=== PATIENT | male | born 1970 | race Caucasian/White ===

== ENCOUNTER 2019-04-01 14:29 | Emergency (ER) | payer OTHER ==
[~2019-04-01] VITALS: Ht 172.7 cm; Wt 104.3 kg
[~2019-04-01 14:29] MED LIST: ALBU90OI INH; DIAZ2 PO; HYDACE5 PO; HYDACE7.5 PO; Inderal80 MG PO; LORA1 PO; PRED20 PO; VALP250 PO
[2019-04-01 14:57] LABS: BASOPHILS ABSOLUTE AUTO 0.04 K/mm3 (0.00-0.23); BASOPHILS PERCENT AUTO 1 % (0-2); EOSINOPHILS PERCENT AUTO 3 % (0-6); Hematocrit 42.8 % (37.0-53.0); Hemoglobin 14.3 g/dL (13.5-17.5); IMMATURE GRAN ABSOLUTE AUTO 0.03 K/mm3 (0.00-0.10); IMMATURE GRAN PERCENT AUTO 0 % (0-1); LYMPHOCYTES ABSOLUTE AUTO 2.59 K/mm3 (0.84-5.20); LYMPHOCYTES PERCENT AUTO 37 % (21-46); MONOCYTES ABSOLUTE AUTO 0.71 K/mm3 (0.16-1.47); MONOCYTES PERCENT AUTO 10 % (4-13); Mean Corpuscular HGB 30.8 pg (26.0-34.0); Mean Corpuscular HGB Conc 33.4 g/dL (31.5-36.5); Mean Corpuscular Volume 92 fL (80-100); Mean Platelet Volume 11.3 fL (9.1-12.4); NEUTROPHILS ABSOLUTE AUTO 3.48 K/mm3 (1.96-9.15); NEUTROPHILS PERCENT AUTO 49 % (41-73); Platelet Count 169 K/mm3 (150-400); RDW Coefficient Variation 11.9 % (11.7-14.2); RDW Standard Deviation 40.1 fL (35.1-46.3); Red Blood Cell Count 4.65 M/mm3 (4.30-5.90); White Blood Cell Count 7.05 K/mm3 (4.00-11.30)
[2019-04-01 15:15] LABS: Alanine Aminotransfer (ALT/SGP 28 U/L (12-78); Albumin, Blood 3.5 g/dL (3.4-5.0); Alk Phos 55 U/L (50-136); Anion Gap 6 mmol/L (6-16); Aspartate Aminotrans (AST/SGOT 24 U/L (12-37); Bilirubin, Total 0.3 mg/dL (0.1-1.0); Blood Urea Nitrogen 20 mg/dL (8-24); Bun/Creatinine Ratio 20.8 (12.0-20.0); CO2, Blood 28 mmol/L (21-32); Calcium, Blood 8.4 mg/dL (8.5-10.1); Chloride, Blood 105 mmol/L (98-108); Creatinine, Blood 0.96 mg/dL (0.60-1.20); Globulin, Blood 3.5 g/dL (2.2-4.0); Glomerular Filtration Rate >60 (60-); Glucose, Blood 86 mg/dL (70-99); Potassium, Blood 4.3 mmol/L (3.5-5.5); Sodium, Blood 139 mmol/L (136-145)
[2019-04-01] MEDS ORDERED: Diclofenac Sodi50 MG PO (15:36)
[2019-04-01] MEDS ORDERED: DIVA250ER PO (15:37)
[2019-04-01] MEDS ORDERED: Imitrex100 MG PO (15:38)
[2019-04-01] MEDS ORDERED: TRAZ100 PO (15:38)
[2019-04-01] MEDS ORDERED: KETO10 PO (16:45)
[2019-04-01] MEDS ORDERED: ONDA4ODT MM (16:45)
== END 2019-04-01 16:58 | disposition home or self-care (01) ==
LOC: ER 14:29
PROVIDERS: Emergency Medicine
DX: G43.909 Migraine, unspecified, not intractable, without status migrainosus (principal); F43.10 Post-traumatic stress disorder, unspecified; Z79.899 Other long term (current) drug therapy
CPT/HCPCS: 70450; 80053; 85025; 93005; 93010; 96361; 96374; 96375; 99284-25; J0780; J1100; J1200; J1885; J7030

== ENCOUNTER 2023-06-17 11:54 | Day surgery (SDC) | payer OTHER ==
[~2023-06-17] VITALS: Ht 172.7 cm; Wt 112.6 kg
[2023-06-17] VITALS (16 sets, daily range): BP systolic 114–147; BP diastolic 75–105
[~2023-06-17 11:54] MED LIST changes: +ALPHA BRAIN PO; +ATEN100 PO; +BENADRYL25 MG PO; +BUPRENORPHINE SL; +DIVA250ER PO; +Diclofenac Sodi50 MG PO; +HYDCHL25 PO; +Imitrex100 MG PO; +KETO10 PO; +Norco 10-325 T1 EACH PO; +ONDA4ODT MM; +PROP10 PO; +Prinivil10 MG PO; +Robaxin750 MG PO; +TRAZ100 PO; +VITAMIN D310 MC4 PO
[2023-06-17] MEDS ORDERED: AMLO10 PO (12:32)
[2023-06-17] MEDS ORDERED: VENL75ER (12:33)
--- NOTE | 2023-06-17 13:12 | NUR ---
History, Chart, Medications and Allergies reviewed before start of procedure. Lungs clear T/O to Auscultation. Patient confirms NPO status and agrees with scheduled surgery. Pre-Op teaching done. Pt verbalizes understanding. Patient reports completing Chlorhexadine shower X2 prior to admission to hospital.
--- NOTE | 2023-06-17 15:40 | NUR ---
06/17/23 1540 Myla Daniels 1GM OF VANCO POWDER INSTILLED INTO R KNEE JOINT CAPSULE AFTER IMPLANTS WERE IN.
[2023-06-18 03:11] VITALS: BP 118/81
--- NOTE | 2023-06-18 04:50 | NUR ---
SHIFT SUMMARY PT POD 0 RIGHT TOTAL KNEE. PT HAS BEEN UP AND AMBULATING, VOIDING AND TOLERATING PO INTAKE. DENIES N/T IN LOWER EXT, ABLE TO WIGGLE TOES. PT HAS HAD QUITE A BIT OF PAIN, PAIN HAS BEEN MANAGED WITH MEDS PER EMAR. DRESSING C/D/I. VITALS STABLE. PLAN OF CARE REMAINS UNCHANGED.
[2023-06-18 05:03] LABS: BASOPHILS ABSOLUTE AUTO 0.01 K/mm3 (0.00-0.23); BASOPHILS PERCENT AUTO 0 % (0-2); EOSINOPHILS PERCENT AUTO 0 % (0-6); Hematocrit 36.1 % (37.0-53.0); Hemoglobin 12.6 g/dL (13.5-17.5); IMMATURE GRAN ABSOLUTE AUTO 0.05 K/mm3 (0.00-0.10); IMMATURE GRAN PERCENT AUTO 0 % (0-1); LYMPHOCYTES ABSOLUTE AUTO 1.53 K/mm3 (0.84-5.20); LYMPHOCYTES PERCENT AUTO 12 % (21-46); MONOCYTES ABSOLUTE AUTO 0.59 K/mm3 (0.16-1.47); MONOCYTES PERCENT AUTO 5 % (4-13); Mean Corpuscular HGB 30.1 pg (26.0-34.0); Mean Corpuscular HGB Conc 34.9 g/dL (31.5-36.5); Mean Corpuscular Volume 86 fL (80-100); Mean Platelet Volume 10.9 fL (9.1-12.4); NEUTROPHILS ABSOLUTE AUTO 10.71 K/mm3 (1.96-9.15); NEUTROPHILS PERCENT AUTO 83 % (41-73); Platelet Count 215 K/mm3 (150-400); RDW Coefficient Variation 11.9 % (11.7-14.2); RDW Standard Deviation 37.5 fL (35.1-46.3); Red Blood Cell Count 4.19 M/mm3 (4.30-5.90); White Blood Cell Count 12.89 K/mm3 (4.00-11.30)
[2023-06-18 05:30] LABS: Bun/Creatinine Ratio 22.1 (12.0-20.0); Calcium, Blood 8.2 mg/dL (8.5-10.1); Creatinine, Blood 0.9 mg/dL (0.60-1.20); Potassium, Blood 3.9 mmol/L (3.5-5.5)
[2023-06-18 07:24] VITALS: BP 131/88
[2023-06-18] MEDS ORDERED: ASPI81CH PO (08:24)
[2023-06-18] MEDS ORDERED: ACET500 PO (08:24)
[2023-06-18] MEDS ORDERED: OXYC5 PO (08:25)
--- NOTE | 2023-06-18 09:07 | NUR ---
DISCHARGE NOTE: PATIENT WAS EDUCATED ON DISCHARGE INSTRUCTIONS. PATIENT VERBALIZED UNDERSTANDING OF INSTRUCTIONS AND HAD NO FURTHER QUESTIONS AT THIS TIME. IV WAS TAKEN OUT AND WNL. PAIN IS MANAGED WITH PO PAIN MEDS. HIS RIGHT KNEE HAS AN AQUACEL THAT IS C/D/I. DENIES NUMBNESS OR TINGLING IN ALL EXTREMITIES. HE IS TOLERATING PO INTAKE AND IS VOIDING. PATIENT IS A SBA WITH FWW AND GAIT BELT. HE IS DRESSED AND HAS PERSONAL ITEMS IN THE ROOM GATHERED. HARD PERSCRITPIONS WERE SENT TO [facility] BY DR. PAIGE. PATIENT IS WAITING FOR HIS RIDE TO ARRIVE TO TAKE HIM HOME.
--- NOTE | 2023-06-18 09:11 | NUR ---
PATIENT IS LAYING IN THE RECLINER CHAIR WITH CALL LIGHT IN REACH WAITING FOR HIS RIDE TO ARRIVE TO TAKE HIM HOME.
--- NOTE | 2023-06-18 10:33 | NUR ---
PATIENT WAS JUST WHEELCHAIRED OUT TO PATIENTS FAMILY MEMBERS CAR TO BE TAKEN HOME. HE HAS ALL OF HIS PERSONAL ITEMS IN THE ROOM GATHERED AND WITH HIM.
== END 2023-06-18 10:34 | disposition home or self-care (01) ==
LOC: SURS 11:54 → ORSCMMR 11:54 → ORD 15:45 → ORSCMMR 15:45 → SURS 17:25 → ORSCMMR 17:26 → SURS 06-18 10:34
PROVIDERS: Orthopaedic Surgery
PROC: 0SRC0JA Replacement of Right Knee Joint with Synthetic Substitute, Uncemented, Open Approach (ICD-10-PCS; principal; 2023-06-17 15:00)
DX: M17.11 Unilateral primary osteoarthritis, right knee (principal); G47.33 Obstructive sleep apnea (adult) (pediatric); I10 Essential (primary) hypertension; K76.0 Fatty (change of) liver, not elsewhere classified; Z79.899 Other long term (current) drug therapy
CPT/HCPCS: 36415; 73560-RT; 80048; 83735; 85025; 97110; 97162; 97530; A9270; C1713; C1776; J0171; J0690; J0735; J1885; J2250; J2795; J3370; J7120